=== PATIENT | female | born 1990 | race Caucasian/White ===

== ENCOUNTER 2016-05-02 13:50 | Emergency (ER) | payer BC ==
[~2016-05-02] VITALS: Ht 170.2 cm; Wt 114.3 kg
[~2016-05-02 13:50] MED LIST: AMOX500C2 PO; BCP; METH4TAB PO; MICROGESTIN PO; SULF1TAB35 PO; TRAM-21 PO
--- OUTSIDE RECORDS SUMMARY | 2016-05-02 13:56 | XMS REPORT | Continuity of Care Document ---
Author Author [facility] Organization [facility] Address Unknown Phone Unavailable Care Team Providers Care Dentist/Owner Name Role Phone [facility], [facility] PCP Insurance Providers Payer Name Policy Number Subscriber Name Relationship [facility] [id number] Gopal Lima 20 Father Advance Directives Directive Response Recorded Date/Time Advance Directives No 01/01/16 5:58pm Health Care Power of Ross Carrier Driver No 01/01/16 5:58pm Organ Donor No 01/01/16 5:58pm Resuscitation Status Full Code 01/01/16 5:58pm Chief Complaint and Reason for Visit Chief Complaint Abdominal/GI Problems Reason for Visit Polycystic ovaries Problems Active Problems Medical Problem Onset Date Status Acute costochondritis Unknown Acute Polycystic ovaries Unknown Acute Reactive cervical lymphadenopathy Unknown Acute Reactive cervical lymphadenopathy Unknown Acute Medications Current Home Medications Medication Dose Units Route Directions Days/Qty Instructions Start Date [Microgestin] 1 Tab Oral Daily 28 01/07/14 Amoxicillin 500 Mg 2 Each Oral Three Times A Day 60 01/07/14 Tramadol Hcl 50 Mg 50 Mg Oral Every 6 Hours as needed for Pain 10 10/14 Trimethoprim/Sulfamethoxazole 1 Each 1 Tab Oral Twice A Day 20 FOR INFECTION 01/09/14 Methylprednisolone 4 Mg/Dose-Pack 0 Oral As Directed 1 01/09/14 Past Home Medications Medication Directions Ordered Status [Bcp] , 10/19/11 Discontinued Social History Social History Problem Response Recorded Date/Time Alcohol Use Occasionally Uses 03/10/2015 6:53pm Recreational Drug Use No 03/10/2015 6:53pm Recent Foreign Travel No 01/09/2014 5:50pm Recent Infectious Disease Exposure No 01/09/2014 5:50pm Hospitalization with Isolation Denies 01/01/2016 5:58pm Sexually Transmitted Disease No 01/01/2016 5:58pm Smoking Status Never a Smoker 01/01/2016 5:58pm Do you dip or chew tobacco? No 03/10/2015 6:53pm Recent Hopitalizations No 01/01/2016 5:58pm Sexually Transmitted Disease No 01/01/2016 5:58pm Hospitalization with Isolation Denies 01/01/2016 5:58pm Query Response Start Date Stop Date Smoking Status Never a Smoker Hospital Discharge Instructions No hospital discharge instructions. Plan of Care Discharge Date 01/01/16 6:43pm Disposition 01 HOME, SELF-CARE Condition at Discharge Stable Instructions/Education Provided Polycystic Ovarian Syndrome (ED) Acute Abdominal Pain (ED) Forms Provided Work Release Form Prescriptions See Medication Section Referrals [facility] - Primary Care Physician Additional Instructions/Education All discharge instructions reviewed with patient and/or family. Voiced understanding. Drink plenty of fluids. You may take ibuprofen 800 mg every 8 hours as needed for pain. You may take Tylenol, 1000 mg every 8 hours as needed for pain. Follow-up with your Dr. at [facility] next week for recheck and further evaluation and further discussion related to control. Return for worse pain, fever, vomiting, weakness, breathing problems or other concerns as needed. Functional Status No functional status results. Allergies, Adverse Reactions, Alerts Allergen Type Severity Reaction Status Last Updated Morphine Allergy Unknown Active 03/10/15 Immunizations No immunization records. Vital Signs Acute Vital Signs Vital Response Date/Time Pain Numeric Pain Scale 10-Worst Possible Pain 01/01/2016 5:58pm Height (Feet) 5 feet 01/01/2016 5:58pm Height (Inches) 7 inches 01/01/2016 5:58pm Height (Calculated Centimeters) 170.458203 cm 01/01/2016 5:58pm Weight (Pounds) 240 pounds 01/01/2016 5:58pm Weight (Calculated Grams) 774617.170 gm 01/01/2016 5:58pm Weight (Calculated Kilograms) 108.897689 kilograms 01/01/2016 5:58pm Calculated BMI 37.59 01/01/2016 5:58pm Capillary Refill Capillary Refill Less Than 3 Seconds 01/01/2016 5:58pm Results Laboratory Results Test Name Result Units Flags Reference Collection Date/Time Result Date/ Time Comments White Blood Count 8.5 10^3/uL 4.3-11.0 01/01/2016 3:30pm 01/01/2016 3: 39pm Red Blood Count 4.30 10^6/uL L 4.35-5.85 01/01/2016 3:30pm 01/01/2016 3: 39pm Hemoglobin 13.2 G/DL 11.5-16.0 01/01/2016 3:30pm 01/01/2016 3:39pm Hematocrit 39 % 35-52 01/01/2016 3:30pm 01/01/2016 3:39pm Mean Corpuscular Volume 90 FL 80-99 01/01/2016 3:30pm 01/01/2016 3: 39pm Mean Corpuscular Hemoglobin 31 PG 25-34 01/01/2016 3:30pm 01/01/2016 3: 39pm Mean Corpuscular Hemoglobin Concent 34 G/DL 32-36 01/01/2016 3:30pm 3:39pm Red Cell Distribution Width 13.4 % 10.0-14.5 01/01/2016 3:30pm 2015 3:39pm Platelet Count 188 10^3/uL 130-400 01/01/2016 3:30pm 01/01/2016 3:39pm Mean Platelet Volume 11.5 FL H 7.4-10.4 01/01/2016 3:30pm 01/01/2016 3: 39pm Neutrophils (%) (Auto) 63 % 42-75 01/01/2016 3:30pm 01/01/2016 3:39pm Lymphocytes (%) (Auto) 22 % 12-44 01/01/2016 3:30pm 01/01/2016 3:39pm Monocytes (%) (Auto) 13 % H 0-12 01/01/2016 3:30pm 01/01/2016 3:39pm Eosinophils (%) (Auto) 1 % 0-10 01/01/2016 3:30pm 01/01/2016 3:39pm Basophils (%) (Auto) 0 % 0-10 01/01/2016 3:30pm 01/01/2016 3:39pm Neutrophils # (Auto) 5.4 X 10^3 1.8-7.8 01/01/2016 3:30pm 01/01/2016 3: 39pm Lymphocytes # (Auto) 1.9 X 10^3 1.0-4.0 01/01/2016 3:30pm 01/01/2016 3: 39pm Monocytes # (Auto) 1.1 X 10^3 H 0.0-1.0 01/01/2016 3:30pm 01/01/2016 3: 39pm Eosinophils # (Auto) 0.1 10^3/uL 0.0-0.3 01/01/2016 3:30pm 01/01/2016 3 :39pm Basophils # (Auto) 0.0 10^3/uL 0.0-0.1 01/01/2016 3:30pm 01/01/2016 3: 39pm Urine Color YELLOW 01/01/2016 2:37pm 01/01/2016 2:53pm Urine Clarity CLEAR 01/01/2016 2:37pm 01/01/2016 2:53pm Urine pH 7 5-9 01/01/2016 2:37pm 01/01/2016 2:53pm Urine Specific [place] 1.010 * 1.016-1.022 01/01/2016 2:37pm 2015 2:53pm Urine Protein NEGATIVE NEGATIVE 01/01/2016 2:37pm 01/01/2016 2:53pm Urine Glucose (UA) NEGATIVE NEGATIVE 01/01/2016 2:37pm 01/01/2016 2: 53pm Urine RBC (Auto) NEGATIVE NEGATIVE 01/01/2016 2:37pm 01/01/2016 2: 53pm Urine Ketones NEGATIVE NEGATIVE 01/01/2016 2:37pm 01/01/2016 2:53pm Urine Nitrite NEGATIVE NEGATIVE 01/01/2016 2:37pm 01/01/2016 2:53pm Urine Bilirubin NEGATIVE NEGATIVE 01/01/2016 2:37pm 01/01/2016 2: 53pm Urine Urobilinogen NORMAL MG/DL NORMAL 01/01/2016 2:37pm 01/01/2016 2: 53pm Urine Leukocyte Esterase NEGATIVE NEGATIVE 01/01/2016 2:37pm 2015 2:53pm Urine RBC NONE /HPF 01/01/2016 2:37pm 01/01/2016 2:53pm Urine WBC 0-2 /HPF 01/01/2016 2:37pm 01/01/2016 2:53pm Urine Bacteria TRACE /HPF 01/01/2016 2:37pm 01/01/2016 2:53pm Urine Squamous Epithelial Cells 10-25 /HPF * 01/01/2016 2:37pm 2015 2:53pm Urine Crystals NONE /LPF 01/01/2016 2:37pm 01/01/2016 2:53pm Urine Casts NONE /LPF 01/01/2016 2:37pm 01/01/2016 2:53pm Urine Mucus NEGATIVE /LPF 01/01/2016 2:37pm 01/01/2016 2:53pm Urine Culture Indicated NO 01/01/2016 2:37pm 01/01/2016 2:53pm Sodium Level 138 MMOL/L 135-145 01/01/2016 3:30pm 01/01/2016 4:06pm Potassium Level 3.8 MMOL/L 3.6-5.0 01/01/2016 3:30pm 01/01/2016 4:06pm Chloride Level 106 MMOL/L 98-107 01/01/2016 3:30pm 01/01/2016 4:06pm Carbon Dioxide Level 24 MMOL/L 21-32 01/01/2016 3:30pm 01/01/2016 4: 06pm Anion Gap 8 MMOL/L 5-14 01/01/2016 3:30pm 01/01/2016 4:06pm Blood Urea Nitrogen 7 MG/DL 7-18 01/01/2016 3:30pm 01/01/2016 4:06pm Creatinine 0.73 MG/DL 0.60-1.30 01/01/2016 3:30pm 01/01/2016 4:06pm BUN/Creatinine Ratio 10 01/01/2016 3:30pm 01/01/2016 4:06pm Estimat Glomerular Filtration Rate > 60 01/01/2016 3:30pm 2015 4:06pm GFR INTERPRETIVE DATA UNITS FOR ESTIMATED GFR (eGFR): mL/min/1.73 M2 REFERENCE RANGE FOR ESTIMATED GFR (eGFR) eGFR NORMAL eGFR >60 MODERATELY DECREASED eGFR 30-59 SEVERLY DECREASED eGFR 15-29 KIDNEY FAILURE <15 (OR DIALYSIS) Glucose Level 96 MG/DL 70-105 01/01/2016 3:30pm 01/01/2016 4:06pm Calcium Level 9.1 MG/DL 8.5-10.1 01/01/2016 3:30pm 01/01/2016 4:06pm Total Bilirubin 0.3 MG/DL 0.1-1.0 01/01/2016 3:30pm 01/01/2016 4:06pm Alkaline Phosphatase 107 U/L 40-136 01/01/2016 3:30pm 01/01/2016 4: 06pm Aspartate Amino Transf (AST/SGOT) 23 U/L 5-34 01/01/2016 3:30pm 2015 4:06pm Alanine Aminotransferase (ALT/SGPT) 27 U/L 0-55 01/01/2016 3:30pm 12/31 4:06pm Total Protein 6.6 G/DL 6.4-8.2 01/01/2016 3:30pm 01/01/2016 4:06pm Albumin 4.0 G/DL 3.2-4.5 01/01/2016 3:30pm 01/01/2016 4:06pm Lipase 6 U/L L 8-78 01/01/2016 3:30pm 01/01/2016 4:06pm Procedures No known history of procedures. Encounters Encounter Location Arrival/Admit Date Discharge/Depart Date Attending Provider Departed Emergency Room [facility] 01/01/16 1:35pm 12/31 6:43pm AGUEDA MALIN MD Recent Diagnosis
--- NOTE | 2016-05-02 14:27 | ED GU-Female ---
General Chief Complaint: -Female Stated Complaint: LOWER ABD PAIN Nursing Triage Note: PT WITH PCOS STATES SEVERE PAIN AND BLEEDING, PT IS ON HER PERIOD BUT STATES THIS IS NOT NORMAL AND FEELS LIKE WHEN SHE HAD A CYST BURST IN THE PAST, AROUND 2005. PAIN STARTED LATE LAST NIGHT AND IS GETTING WORSE THE DAY GOES. Nursing Sepsis Screen: No Definite Risk Source: patient Exam Limitations: no limitations History of Present Illness Time seen by provider: 14:27 Initial Comments 25 yo female patient presents to the ED with c/o menorrhagia starting yesterday. Patient reports moderate to severe cramping of the lower abdomen beginning today. States she has used 2-3 pads today. Reports having a miscarriage in March. LMP was in February. Does report urine has been dark. Patient reports a h/o PCOS and states today's pain feels similar to when she had a cyst rupture. Patient was seeing Dr. Lee for the miscarriage. NPO since 1199. Timing/Duration: yesterday Severity/Quality: cramping Location: suprapubic Radiation: none Activities at Onset: none Prior Genitourinary Problems: similar symptoms Sexual [place] History: less than 2 months ago, single partner Modifying Factors: Worsens With Palpation Allergies and Home Medications Allergies Coded Allergies: diphenhydramine (Verified Allergy, Mild, 05/02/16) morphine (Verified Allergy, Unknown, 03/10/15) Home Medications #28 1 TAB PO DAILY (Reported) Naproxen Sodium 550 Mg Tablet #20 550 MG PO BID PRN PRN PAIN Prescribed by: RONEN DUNN on 05/02/16 1803 Constitutional: chillsNo diaphoresis, No dizziness, No fever, malaise Respiratory: no symptoms reported Cardiovascular: no symptoms reported Gastrointestinal: see HPI abdominal painNo constipation, No diarrhea, loss of appetiteNo nausea, No vomiting Genitourinary: see HPIdenies burning, discharge (vaginal bleeding)denies dysuria, frequencydenies flank pain, denies pain : No Musculoskeletal: No back pain Skin: no symptoms reported Psychiatric/Neurological: No Symptoms Reported All Other Systemes Reviewed Negative Unless Noted: Yes (Negative excepted noted.) Past Lvusepb-Semasl-Kfirog Hx Patient Social History Type Used: Cigarettes Recent Foreign Travel: No Contact w/Someone Who Travel: No Recent Infectious Disease Expo: No Recent Hopitalizations: No Immunizations Up To Date Tetanus Booster (TDap): Unknown Seasonal Allergies Seasonal Allergies: No Surgeries HX Surgeries: Yes (Trigger thumb, foot trauma surg x 2, R ruptured ovary repair ) Surgeries: Adenoidectomy, Appendectomy, Orthopedic, Tonsillectomy Respiratory Hx Respiratory Disorders: Yes Respiratory Disorders: Asthma Cardiovascular Hx Cardiac Disorders: No Neurological Hx Neurological Disorders: Yes Neurological Disorders: Headaches /Migraines Reproductive System : No Hx : 1 Hx Para: 0 Hx Total # of Abortions (Spona: 1 Hx Reproductive Disorders: Yes Sexually Transmitted Disease: No Female Reproductive Disorders: Polycystic Ovarian Dis Genitourinary Hx Genitourinary Disorders: No Gastrointestinal Hx Gastrointestinal Disorders: No Musculoskeletal Hx Musculoskeletal Disorders: No Endocrine Hx Endocrine Disorders: No HEENT HX ENT Disorders: No Cancer Hx Cancer: No Psychosocial Hx Psychiatric Problems: Yes Behavioral Health Disorders: Anxiety, Depression Integumentary HX Skin/Integumentary Disorder: No Blood Transfusions Hx Blood Disorders: No Reviewed Nursing Assessment Reviewed/Agree w Nursing PMH: Yes Family Medical History Significant Family History: Cancer, Hypertension Physical Exam Vital Signs Vital Sign - Last 12Hours 05/02/16 05/02/16 14:13 19:18 Temp 97.9 Pulse 79 Resp 20 B/P 164/120 Pulse Ox 97 O2 Delivery Room Air Capillary Refill : Less Than 3 Seconds General Appearance: WD/WN no apparent distress obese HEENT: PERRL/EOMI pharynx normal Neck: supple normal inspection Cardiovascular: normal peripheral pulses regular rate, rhythm no edema no murmur Respiratory: lungs clear normal breath sounds no respiratory distress Gastrointestinal: normal bowel sounds soft no organomegalyNo distended, guarding (suprapubic)No rebound, tenderness (suprapubic) Pelvic: normal external exam normal adnexa no cerv. motion tender no massesNo discharge, No lesions, vaginal bleeding (small amount of dark, bloody discharge in the vagina.) Back: normal inspection no CVA tenderness Extremities: no pedal edema normal capillary refill Neurologic/Psychiatric: alert oriented x 3 depressed affect (depressed/flat affect.) Skin: normal color warm/dry Progress/Results/Core Measures Results/Orders Lab Results Laboratory Tests Test 05/02/16 14:35 05/02/16 14:50 05/02/16 18:40 Range/Units Urine Bacteria FEW H /HPF Urine Bilirubin NEGATIVE NEGATIVE Urine Casts NONE /LPF Urine Clarity BLOODY H Urine Color RED H Urine Crystals NONE /LPF Urine Culture Indicated YES Urine Glucose (UA) NEGATIVE NEGATIVE Urine Ketones NEGATIVE NEGATIVE Urine Leukocyte Esterase 2+ H NEGATIVE Urine Mucus NEGATIVE /LPF Urine Nitrite NEGATIVE NEGATIVE Urine Protein 3+ H NEGATIVE Urine RBC TNTC H /HPF Urine RBC (Auto) 5+ H NEGATIVE Urine Specific [place] 1.015 L 1.016-1.022 Urine Squamous Epithelial Cells 0-2 /HPF Urine Urobilinogen NORMAL NORMAL MG/DL Urine WBC 5-10 H /HPF Urine pH 5 5-9 Alanine Aminotransferase (ALT/SGPT) 17 0-55 U/L Albumin 4.3 3.2-4.5 G/DL Alkaline Phosphatase 112 40-136 U/L Anion Gap 8 5-14 MMOL/L Aspartate Amino Transf (AST/SGOT) 18 5-34 U/L BUN/Creatinine Ratio 15 Basophils # (Auto) 0.0 0.0-0.1 10^3/uL Basophils (%) (Auto) 0 0-10 % Blood Urea Nitrogen 10 7-18 MG/DL Calcium Level 8.9 8.5-10.1 MG/DL Carbon Dioxide Level 23 21-32 MMOL/L Chloride Level 108 H 98-107 MMOL/L Creatinine 0.66 0.60-1.30 MG/DL Eosinophils # (Auto) 0.1 0.0-0.3 10^3/uL Eosinophils (%) (Auto) 2 0-10 % Estimat Glomerular Filtration Rate > 60 Glucose Level 81 70-105 MG/DL Hematocrit 41 35-52 % Hemoglobin 14.3 11.5-16.0 G/DL Lymphocytes # (Auto) 2.9 1.0-4.0 X 10^3 Lymphocytes (%) (Auto) 38 12-44 % Mean Corpuscular Hemoglobin 31 25-34 PG Mean Corpuscular Hemoglobin Concent 35 32-36 G/DL Mean Corpuscular Volume 88 80-99 FL Mean Platelet Volume 11.5 H 7.4-10.4 FL Monocytes # (Auto) 0.5 0.0-1.0 X 10^3 Monocytes (%) (Auto) 7 0-12 % Neutrophils # (Auto) 4.0 1.8-7.8 X 10^3 Neutrophils (%) (Auto) 53 42-75 % Platelet Count 216 130-400 10^3/uL Potassium Level 3.8 3.6-5.0 MMOL/L Red Blood Count 4.67 4.35-5.85 10^6/uL Red Cell Distribution Width 12.8 10.0-14.5 % Serum Test, Qualitative NEGATIVE NEGATIVE Sodium Level 139 135-145 MMOL/L Total Bilirubin 0.3 0.1-1.0 MG/DL Total Protein 6.9 6.4-8.2 G/DL White Blood Count 7.6 4.3-11.0 10^3/uL My Orders Orders-RONEN DUNN Cbc With Automated Diff (05/02/16 14:25) Comprehensive Metabolic Panel (05/02/16 14:25) Ua Culture If Indicated (05/02/16 14:25) Saline Lock/Iv-Start (05/02/16 14:25) Urine Bedside (05/02/16 14:25) Urine Culture (05/02/16 14:35) Hcg,Qualitative Serum (05/02/16 15:05) Ketorolac Injection (Toradol Injection) (05/02/16 15:16) Ondansetron Injection (Zofran Injectio (05/02/16 15:30) Ns Iv 1000 Ml (Sodium Chloride 0.9%) (05/02/16 15:16) Us Non Ob Transvaginal [id number] (05/02/16 15:16) Ct Abdomen/Pelvis W (05/02/16 17:05) Wet Prep (05/02/16 17:05) Neisseria Gonorrhea Dna (05/02/16 17:05) Chlamydia Dna (05/02/16 17:05) Genital Culture (05/02/16 17:05) Fentanyl Injection (Sublimaze Injection (05/02/16 17:15) Iohexol Injection (Omnipaque 350 Mg/Ml 1 (05/02/16 17:15) Ns (Ivpb) (Sodium Chloride 0.9% Ivpb Bag (05/02/16 17:15) Medications Given in ED Current Medications Medications Dose Ordered Sig/Gabriela Route Start Time Stop Time Status Last Admin Dose Admin Fentanyl Citrate 50 mcg ONCE ONCE IVP 05/02/16 17:15 05/02/16 17:16 DC 05/02/16 18:38 50 MCG Ondansetron HCl 4 mg 4 mg ONCE ONCE IVP 05/02/16 15:30 05/02/16 15:31 DC 05/02/16 15:49 4 MG Sodium Chloride 100 ml ONCE ONCE IV 05/02/16 17:15 05/02/16 17:16 DC 05/02/16 17:26 100 ML Sodium Chloride 1,000 ml @ 0 mls/hr Q0M ONCE IV 05/02/16 15:16 05/02/16 15:18 DC 05/02/16 15:48 1,000 MLS/HR Vital Signs/I&O Vital Sign - Last 12Hours 05/02/16 05/02/16 14:13 19:18 Temp 97.9 Pulse 79 57 Resp 20 18 B/P 164/120 Pulse Ox 97 O2 Delivery Room Air Blood Pressure Mean: 135 Diagnostic Imaging Diagonstic Imaging: Ultrasound Plain Films/CT/US/NM/MRI: pelvis Comments DISCUSSION: Transvaginal sonographic evaluation of the pelvis was performed. The uterus is normal in echotexture and size measuring 7.4 x 3.4 x 3.1 cm. Normal endometrial thickness measuring 0.3 cm. The ovaries appear normal in echotexture and size bilaterally with normal color Doppler blood flow. The right ovary measures 2.1 x 2.1 x 2.7 cm. The left ovary measures 3.0 x 2.0 x 2.5 cm. No abnormal adnexal mass or fluid. IMPRESSION: Unremarkable pelvic ultrasound. No sonographic evidence for retained products of conception. Dictated on workstation # [id number] Reviewed: Reviewed by Me (radiology report reviewed by me) Diagonstic Imaging: CT Plain Films/CT/US/NM/MRI: abdomen, pelvis Comments FINDINGS: Visible lung bases are clear. No pericardial or pleural effusion. No free intraperitoneal air or fluid. The liver, gallbladder, and bile ducts are normal. The spleen, pancreas, and adrenals are normal. Kidneys enhance symmetrically without obstructing calculi or suspicious mass lesion. Urinary bladder is partially distended without wall thickening. Uterus and ovaries are normal in appearance for patient's age. Small (less than 2 cm) bilateral ovarian follicles. Rectosigmoid colon is decompressed without surrounding inflammatory changes to indicate active colitis. Remainder of the colon is normal. Appendectomy. Normal-caliber abdominal aorta. No abdominal or pelvic lymphadenopathy. No ventral hernia. Normal regional skeleton. IMPRESSION: 1. No acute intra-abdominal process. 2. Normal uterus and ovaries. 3. Appendectomy. Dictated on workstation # [id number] Reviewed: Reviewed by Me (radiology report reviewed by me. ) Departure Communication Progress Notes Patient seen and evaluated. Patient was noted to have a normal pelvic ultrasound, but continued to have moderate to severe lower abdominal pain. CT scan of the abd and pelvis was performed which was negative. Patient did have improvement in pain after being given the fentanyl. Laboratory findings were discussed with the patient. Plan for dsch to home. Patient to f/u on the pelvic cultures with her PCP. Impression Impression: Primary Impression: Menorrhagia Qualified Code: N92.1 - Excessive and frequent menstruation with irregular cycle Additional Impressions: Pelvic pain History of polycystic ovarian syndrome Disposition: HOME, SELF-CARE Condition: Improved Departure-Patient Inst. Decision time for Depature: 18:06 Referrals: NO,LOCAL PHYSICIAN (PCP/Family) Primary Care Physician Patient Instructions: IRREGULAR VAGINAL BLEEDING Add. Discharge Instructions: All discharge instructions reviewed with patient and/or family. Voiced understanding. Medications as instructed. Tylenol Extra Strength over-the- counter as directed for pain. Follow-up with Dr. Lee as an outpatient for recheck, call for appointment time. Return to the emergency department for worsened pain, fever, vaginal bleeding with greater than 2 pads per hour for greater than 2 hours, or any other concerns. Scripts Naproxen Sodium (Anaprox Ds)550 Mg Xupubn451 Mg PO BID PRN PAIN #20 TAB Ref 0 Prov:RONEN DUNN 05/02/16 Work/School Note: [employer] RONEN DUNN May 02, 2016 14:27
[2016-05-02 14:47] LABS: BILIRUBIN,URINE NEGATIVE (NEGATIVE); KETONES,URINE NEGATIVE (NEGATIVE); LEUKOCYTE ESTERASE ,URINE 2+ (NEGATIVE); NITRITE,URINE NEGATIVE (NEGATIVE); PH,URINE 5 (5-9); PROTEIN,URINE 3+ (NEGATIVE); UROBILINOGEN,URINE NORMAL (NORMAL)
[2016-05-02 15:00] LABS: SQUAMOUS EPITHELIAL CELL,UR 0-2 /HPF
[2016-05-02 15:04] LABS: BASOPHILS % (AUTO) 0 % (0-10); EOSINOPHILS # (AUTO) 0.1 10^3/uL (0.0-0.3); EOSINOPHILS % (AUTO) 2 % (0-10); LYMPHOCYTES # (AUTO) 2.9 X 10^3 (1.0-4.0); LYMPHOCYTES % (AUTO) 38 % (12-44); MEAN CORPUSCULAR HEMOGLOBIN 31 PG (25-34); MEAN CORPUSCULAR HGB CONC 35 G/DL (32-36); MEAN CORPUSCULAR VOLUME 88 FL (80-99); MEAN PLATELET VOLUME 11.5 FL (7.4-10.4); MONOCYTES # (AUTO) 0.5 X 10^3 (0.0-1.0); MONOCYTES % (AUTO) 7 % (0-12); NEUTROPHILS % (AUTO) 53 % (42-75); PLATELET COUNT 216 10^3/uL (130-400); RED BLOOD COUNT 4.67 10^6/uL (4.35-5.85); RED CELL DISTRIBUTION WIDTH 12.8 % (10.0-14.5); WHITE BLOOD COUNT 7.6 10^3/uL (4.3-11.0)
[2016-05-02] MEDS ORDERED: NS IV 1000 ML 1,000 ML IV ONE (15:16)
[2016-05-02] MEDS ORDERED: KETOROLAC 30 MG/ML VIAL IVP STA (15:16)
[2016-05-02 15:24] LABS: ALANINE AMINOTRANSFERASE 17 U/L (0-55); ALBUMIN 4.3 G/DL (3.2-4.5); ANION GAP 8 MMOL/L (5-14); ASPARTATE AMINO TRANSFERASE 18 U/L (5-34); BILIRUBIN,TOTAL 0.3 MG/DL (0.1-1.0); BLOOD UREA NITROGEN 10 MG/DL (7-18); BUN/CREATININE RATIO 15; CALCIUM 8.9 MG/DL (8.5-10.1); CARBON DIOXIDE 23 MMOL/L (21-32); CHLORIDE 108 MMOL/L (98-107); CREATININE SERUM 0.66 MG/DL (0.60-1.30); GFR ESTIMATED > 60; GLUCOSE 81 MG/DL (70-105); POTASSIUM 3.8 MMOL/L (3.6-5.0); SODIUM 139 MMOL/L (135-145); TOTAL PROTEIN 6.9 G/DL (6.4-8.2)
[2016-05-02] MEDS ORDERED: ONDANSETRON 4 MG/2 ML (SDV) Z0FRAN IVP ONE (15:30)
--- NOTE | 2016-05-02 16:04 | Diagnostic Imaging Report ---
INDICATION: Dysfunctional uterine bleeding, history of recent miscarriage in March 2016. COMPARISON: 01/01/2016. DISCUSSION: Transvaginal sonographic evaluation of the pelvis was performed. The uterus is normal in echotexture and size measuring 7.4 x 3.4 x 3.1 cm. Normal endometrial thickness measuring 0.3 cm. The ovaries appear normal in echotexture and size bilaterally with normal color Doppler blood flow. The right ovary measures 2.1 x 2.1 x 2.7 cm. The left ovary measures 3.0 x 2.0 x 2.5 cm. No abnormal adnexal mass or fluid. IMPRESSION: Unremarkable pelvic ultrasound. No sonographic evidence for retained products of conception. Dictated by: Dictated on workstation # [id number]
[2016-05-02] MEDS ORDERED: fentaNYL INJECTION 100 MCG/2 ML AMP IVP ONE (17:15)
[2016-05-02] MEDS ORDERED: NS 100 ML (IVPB) BAG IV ONE (17:15)
[2016-05-02] MEDS ORDERED: IOHEXOL 350 MG/ML 150 ML (OMNIPAQUE 350) VIAL IV ONE (17:15)
--- NOTE | 2016-05-02 17:47 | Diagnostic Imaging Report ---
PROCEDURE: CT abdomen and pelvis with contrast. TECHNIQUE: Multiple contiguous axial images were obtained through the abdomen and pelvis after administration of intravenous contrast. INDICATION: Lower abdominal and pelvic pain. Diarrhea. COMPARISON: 01/01/2016. FINDINGS: Visible lung bases are clear. No pericardial or pleural effusion. No free intraperitoneal air or fluid. The liver, gallbladder, and bile ducts are normal. The spleen, pancreas, and adrenals are normal. Kidneys enhance symmetrically without obstructing calculi or suspicious mass lesion. Urinary bladder is partially distended without wall thickening. Uterus and ovaries are normal in appearance for patient's age. Small (less than 2 cm) bilateral ovarian follicles. Rectosigmoid colon is decompressed without surrounding inflammatory changes to indicate active colitis. Remainder of the colon is normal. Appendectomy. Normal-caliber abdominal aorta. No abdominal or pelvic lymphadenopathy. No ventral hernia. Normal regional skeleton. IMPRESSION: 1. No acute intra-abdominal process. 2. Normal uterus and ovaries. 3. Appendectomy. Dictated by: Dictated on workstation # [id number]
[2016-05-02] MEDS ORDERED: NAPR550T PO (18:03)
[2016-05-02 19:18] VITALS: BP 136/79
== END 2016-05-02 19:17 | disposition home or self-care (01) ==
LOC: EDUNIT# 13:50 → ER 13:52
DX: N92.0 Excessive and frequent menstruation with regular cycle (principal); R10.2 Pelvic and perineal pain; E28.2 Polycystic ovarian syndrome
CPT/HCPCS: 36415; 74177; 76830; 80053; 81000; 84703; 85025; 87070; 87088; 87210; 87491; 87591; 96361; 96374; 96375

== ENCOUNTER 2016-09-28 22:53 | Emergency (ER) | payer BC ==
[~2016-09-28] VITALS: Ht 172.7 cm; Wt 81.6 kg
[~2016-09-28 22:53] MED LIST changes: +NAPR550T PO
[2016-09-29] MEDS ORDERED: AMOXICILLIN 500 MG (POLYMOX) CAP PO ONE ×2 (00:12)
[2016-09-29 00:19] VITALS: BP 172/96
--- NOTE | 2016-09-29 06:39 | ED General ---
General Chief Complaint: Ear Problems Stated Complaint: RT SIDE EAR/HEAD PAIN Nursing Triage Note: pt c/o bilat ear pain, worse on the right, x 1 month. pain worsening tonight with headache. Nursing Sepsis Screen: No Definite Risk Allergies and Home Medications Allergies Coded Allergies: diphenhydramine (Verified Allergy, Mild, 05/02/16) morphine (Verified Allergy, Unknown, 03/10/15) Home Medications [Microgestin] , 1 TAB PO DAILY, #28 (Reported) Past Dkwkrpk-Rgqoww-Fzwcsr Hx Patient Social History Alcohol Use: Rarely Uses Recreational Drug Use: No Smoking Status: Never a Smoker Type Used: Cigarettes Recent Foreign Travel: No Contact w/Someone Who Travel: No Recent Infectious Disease Expo: No Recent Hopitalizations: No Immunizations Up To Date Tetanus Booster (TDap): Unknown Seasonal Allergies Seasonal Allergies: No Surgeries HX Surgeries: Yes (Trigger thumb, foot trauma surg x 2, R ruptured ovary repair ) Surgeries: Adenoidectomy, Appendectomy, Orthopedic, Tonsillectomy Respiratory Hx Respiratory Disorders: Yes Respiratory Disorders: Asthma Cardiovascular Hx Cardiac Disorders: No Neurological Hx Neurological Disorders: Yes Neurological Disorders: Headaches /Migraines Reproductive System Hx Reproductive Disorders: Yes Sexually Transmitted Disease: No Female Reproductive Disorders: Polycystic Ovarian Dis Genitourinary Hx Genitourinary Disorders: No Gastrointestinal Hx Gastrointestinal Disorders: No Musculoskeletal Hx Musculoskeletal Disorders: No Endocrine Hx Endocrine Disorders: No HEENT HX ENT Disorders: No Cancer Hx Cancer: No Psychosocial Hx Psychiatric Problems: Yes Behavioral Health Disorders: Anxiety, Depression Integumentary HX Skin/Integumentary Disorder: No Blood Transfusions Hx Blood Disorders: No Family Medical History Significant Family History: Cancer, Hypertension Physical Exam Vital Signs Vital Sign - Last 12Hours 09/28/16 09/29/16 23:10 00:19 Temp 97.7 Pulse 72 Resp 16 B/P (MAP) 184/101 Pulse Ox 98 Capillary Refill : Less Than 3 Seconds Progress/Results/Core Measures Results/Orders My Orders Orders - ENIO SORTO MD Amoxicillin Capsule (Polymox Capsule) (09/29/16 00:00) Medications Given in ED Current Medications Medications Dose Ordered Sig/Gabriela Route Start Time Stop Time Status Last Admin Dose Admin Amoxicillin 1,000 mg ONCE ONCE PO 09/29/16 00:00 09/29/16 01:39 DC 09/28/16 00:15 1,000 MG Vital Signs/I&O Vital Sign - Last 12Hours 09/28/16 09/29/16 23:10 00:19 Temp 97.7 Pulse 72 76 Resp 16 15 B/P (MAP) 184/101 Pulse Ox 98 Blood Pressure Mean: 128 Departure Impression Impression: Primary Impression: Maxillary sinusitis, acute Qualified Codes: J01.00 - Acute maxillary sinusitis, unspecified Additional Impressions: Neck pain Otalgia Qualified Codes: H92.01 - Otalgia, right ear Headache Qualified Codes: R51 - Headache Disposition: 01 HOME, SELF-CARE Condition: Improved Departure-Patient Inst. Referrals: NO,LOCAL PHYSICIAN (PCP) Primary Care Physician ENIO SORTO MD Sep 29, 2016 06:39
--- OUTSIDE RECORDS SUMMARY | 2016-09-29 09:41 | XMS REPORT | Continuity of Care Document ---
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 10/19/2011 Ot 959.09 INJURY OF FACE AND NECK 10/19/2011 Ot E000.8 OTHER EXTERNAL CAUSE STATUS 10/19/2011 Ot E849.0 ACCIDENT IN HOME 10/19/2011 Ot E914 FB ENTERING EYE 01/07/2014 NOREEN BRAXTON, ENIO Hager Ot 388.70 OTALGIA NOS 01/07/2014 NOREEN BRAXTON, ENIO Hager Ot 785.6 ENLARGEMENT LYMPH NODES 01/09/2014 PILLO DAVILA DO Ot 782.2 LOCAL SUPRFICIAL SWELLNG 03/10/2015 YULY MCKNIGHT DO Ot M94.0 CHONDROCOSTAL JUNCTION SYNDROME [TIETZE] 05/25/2015 Ot 787.02 05/25/2015 Ot 789.00 06/08/2015 DOT TIDWELL MD Ot G43.909 06/08/2015 DOT TIDWELL MD Ot G43.909 06/25/2015 DOT TIDWELL MD Ot G43.909 01/01/2016 AGUEDA MALIN MD Ot E28.2 POLYCYSTIC OVARIAN SYNDROME 01/01/2016 AGUEDA MALIN MD Ot R10.32 LEFT LOWER QUADRANT PAIN 01/04/2016 AGUEDA MALIN MD Ot E28.2 POLYCYSTIC OVARIAN SYNDROME 01/04/2016 AGUEDA MALIN MD Ot R10.32 LEFT LOWER QUADRANT PAIN 03/28/2016 AGUEDA MALIN MD Ot O20.0 THREATENED 03/28/2016 Ot 787.02 NAUSEA ALONE 03/28/2016 Ot 789.00 ABDOMINAL PAIN, UNSPECIFIED SITE 03/28/2016 YAW BRAXTON, DOT Braden Ot G43.909 MIGRAINE, UNSP, NOT INTRACTABLE, WITHOUT 03/29/2016 KIMO BRAXTON, AGUEDA Noguera Ot O20.0 THREATENED 05/02/2016 RONEN CALLAWAY L Ot E28.2 POLYCYSTIC OVARIAN SYNDROME 05/02/2016 RONEN CALLAWAY L Ot N92.0 EXCESSIVE AND FREQUENT MENSTRUATION WITH 05/02/2016 RONEN CALLAWAY L Ot R10.2 PELVIC AND PERINEAL PAIN 05/02/2016 RONEN CALLAWAY L Ot R10.30 LOWER ABDOMINAL PAIN, UNSPECIFIED 05/03/2016 RONEN CALLAWAY L Ot E28.2 POLYCYSTIC OVARIAN SYNDROME 05/03/2016 RONEN CALLAWAY L Ot N92.0 EXCESSIVE AND FREQUENT MENSTRUATION WITH 05/03/2016 RONEN CALLAWAY L Ot R10.2 PELVIC AND PERINEAL PAIN 05/03/2016 LEA CALLAWAYEN L Ot R10.30 LOWER ABDOMINAL PAIN, UNSPECIFIED 05/04/2016 LEA CALLAWAYEN L Ot E28.2 POLYCYSTIC OVARIAN SYNDROME 05/04/2016 RONEN CALLAWAY L Ot N92.0 EXCESSIVE AND FREQUENT MENSTRUATION WITH 05/04/2016 RONEN CALLAWAY L Ot R10.2 PELVIC AND PERINEAL PAIN 05/04/2016 RONEN CALLAWAY L Ot R10.30 LOWER ABDOMINAL PAIN, UNSPECIFIED 05/10/2016 LEA CALLAWAYEN L Ot E28.2 POLYCYSTIC OVARIAN SYNDROME 05/10/2016 RONEN CALLAWAY L Ot N92.0 EXCESSIVE AND FREQUENT MENSTRUATION WITH 05/10/2016 RONEN CALLAWAY L Ot R10.2 PELVIC AND PERINEAL PAIN 05/10/2016 RONEN CALLAWAY L Ot R10.30 LOWER ABDOMINAL PAIN, UNSPECIFIED 05/11/2016 LEA CALLAWAYEN L Ot E28.2 POLYCYSTIC OVARIAN SYNDROME 05/11/2016 LEA CALLAWAYEN L Ot N92.0 EXCESSIVE AND FREQUENT MENSTRUATION WITH 05/11/2016 LEA CALLAWAYEN L Ot R10.2 PELVIC AND PERINEAL PAIN 05/11/2016 SHAUN MORE, RONEN Melgar Ot R10.30 LOWER ABDOMINAL PAIN, UNSPECIFIED Procedures Results Test Result Range Complete urinalysis with reflex to culture - 01/01/16 14:37 Urine color determination YELLOW NRG Urine clarity determination CLEAR NRG Urine pH measurement by test strip 7 5- 9 Specific gravity of urine by test strip 1.010 1.016-1.022 Urine protein assay by test strip, semi-quantitative NEGATIVE NEGATIVE Urine glucose detection by automated test strip NEGATIVE NEGATIVE Erythrocytes detection in urine sediment by light microscopy NEGATIVE NEGATIVE Urine ketones detection by automated test strip NEGATIVE NEGATIVE Urine nitrite detection by test strip NEGATIVE NEGATIVE Urine total bilirubin detection by test strip NEGATIVE NEGATIVE Urine urobilinogen measurement by automated test strip (mass/volume) NORMAL NORMAL Urine leukocyte esterase detection by dipstick NEGATIVE NEGATIVE Automated urine sediment erythrocyte count by microscopy (number/high power field) NONE NRG Automated urine sediment leukocyte count by microscopy (number/high power field ) [HPF] NRG Bacteria detection in urine sediment by light microscopy TRACE NRG Squamous epithelial cells detection in urine sediment by light microscopy 10-25 NRG Crystals detection in urine sediment by light microscopy NONE NRG Casts detection in urine sediment by light microscopy NONE NRG Mucus detection in urine sediment by light microscopy NEGATIVE NRG Complete urinalysis with reflex to culture NO NRG Complete blood count (CBC) with automated white blood cell (WBC) differential - 01/01/16 15:30 Blood leukocytes automated count (number/volume) 8.5 10*3/ uL 4.3-11.0 Blood erythrocytes automated count (number/volume) 4.30 10*6 /uL 4.35-5.85 Venous blood hemoglobin measurement (mass/volume) 13.2 g/dL 11.5-16.0 Blood hematocrit (volume fraction) 39 % 35-52 Automated erythrocyte mean corpuscular volume 90 [foz_us] 80-99 Automated erythrocyte mean corpuscular hemoglobin (mass per erythrocyte) 31 pg 25-34 Automated erythrocyte mean corpuscular hemoglobin concentration measurement ( mass/volume) 34 g/dL 32-36 Automated erythrocyte distribution width ratio 13.4 % 10.0-14.5 Automated blood platelet count (count/volume) 188 10*3/uL 130-400 Automated blood platelet mean volume measurement 11.5 [foz_ us] 7.4-10.4 Automated blood neutrophils/100 leukocytes 63 % 42-75 Automated blood lymphocytes/100 leukocytes 22 % 12-44 Blood monocytes/100 leukocytes 13 % 0-12 Automated blood eosinophils/100 leukocytes 1 % 0-10 Automated blood basophils/100 leukocytes 0 % 0-10 Blood neutrophils automated count (number/volume) 5.4 10*3 1.8-7.8 Blood lymphocytes automated count (number/volume) 1.9 10*3 1.0-4.0 Blood monocytes automated count (number/volume) 1.1 10*3 0.0-1.0 Automated eosinophil count 0.1 10*3/uL 0.0-0.3 Automated blood basophil count (count/volume) 0.0 10*3/uL 0.0-0.1 Serum or plasma choriogonadotropin ( test) detection - 01/01/16 15:30 Serum or plasma choriogonadotropin ( test) detection NEGATIVE NEGATIVE Comprehensive metabolic panel - 01/01/16 15:30 Serum or plasma sodium measurement (moles/volume) 138 mmol/ L 135-145 Serum or plasma potassium measurement (moles/volume) 3.8 mmol/L 3.6-5.0 Serum or plasma chloride measurement (moles/volume) 106 mmol /L 98-107 Carbon dioxide 24 mmol/L 21-32 Serum or plasma anion gap determination (moles/volume) 8 mmol/L 5-14 Serum or plasma urea nitrogen measurement (mass/volume) 7 mg /dL 7-18 Serum or plasma creatinine measurement (mass/volume) 0.73 mg /dL 0.60-1.30 Serum or plasma urea nitrogen/creatinine mass ratio 10 NRG Serum or plasma creatinine measurement with calculation of estimated glomerular filtration rate > NRG Serum or plasma glucose measurement (mass/volume) 96 mg/dL 70-105 Serum or plasma calcium measurement (mass/volume) 9.1 mg/dL 8.5-10.1 Serum or plasma total bilirubin measurement (mass/volume) 0.3 mg/dL 0.1-1.0 Serum or plasma alkaline phosphatase measurement (enzymatic activity/volume) 107 U/L 40-136 Serum or plasma aspartate aminotransferase measurement (enzymatic activity/ volume) 23 U/L 5-34 Serum or plasma alanine aminotransferase measurement (enzymatic activity/volume ) 27 U/L 0-55 Serum or plasma protein measurement (mass/volume) 6.6 g/dL 6.4-8.2 Serum or plasma albumin measurement (mass/volume) 4.0 g/dL 3.2-4.5 Lipase - 01/01/16 15:30 Lipase 6 U/L 8-78 Complete blood count (CBC) with automated white blood cell (WBC) differential - 03/27/16 23:00 Blood leukocytes automated count (number/volume) 10.1 10*3/ uL 4.3-11.0 Blood erythrocytes automated count (number/volume) 4.42 10*6 /uL 4.35-5.85 Venous blood hemoglobin measurement (mass/volume) 13.5 g/dL 11.5-16.0 Blood hematocrit (volume fraction) 40 % 35-52 Automated erythrocyte mean corpuscular volume 90 [foz_us] 80-99 Automated erythrocyte mean corpuscular hemoglobin (mass per erythrocyte) 31 pg 25-34 Automated erythrocyte mean corpuscular hemoglobin concentration measurement ( mass/volume) 34 g/dL 32-36 Automated erythrocyte distribution width ratio 12.8 % 10.0-14.5 Automated blood platelet count (count/volume) 253 10*3/uL 130-400 Automated blood platelet mean volume measurement 11.0 [foz_ us] 7.4-10.4 Automated blood neutrophils/100 leukocytes 46 % 42-75 Automated blood lymphocytes/100 leukocytes 43 % 12-44 Blood monocytes/100 leukocytes 9 % 0-12 Automated blood eosinophils/100 leukocytes 2 % 0-10 Automated blood basophils/100 leukocytes 0 % 0-10 Blood neutrophils automated count (number/volume) 4.6 10*3 1.8-7.8 Blood lymphocytes automated count (number/volume) 4.3 10*3 1.0-4.0 Blood monocytes automated count (number/volume) 0.9 10*3 0.0-1.0 Automated eosinophil count 0.2 10*3/uL 0.0-0.3 Automated blood basophil count (count/volume) 0.0 10*3/uL 0.0-0.1 Complete urinalysis with reflex to culture - 03/27/16 23:00 Urine color determination RED NRG Urine clarity determination BLOODY NRG Urine pH measurement by test strip 6.5 5 -9 Specific gravity of urine by test strip 1.015 1.016-1.022 Urine protein assay by test strip, semi-quantitative 3+ NEGATIVE Urine glucose detection by automated test strip NEGATIVE NEGATIVE Erythrocytes detection in urine sediment by light microscopy 5+ NEGATIVE Urine ketones detection by automated test strip NEGATIVE NEGATIVE Urine nitrite detection by test strip NEGATIVE NEGATIVE Urine total bilirubin detection by test strip NEGATIVE NEGATIVE Urine urobilinogen measurement by automated test strip (mass/volume) NORMAL NORMAL Urine leukocyte esterase detection by dipstick 3+ NEGATIVE Automated urine sediment erythrocyte count by microscopy (number/high power field) [facility] Automated urine sediment leukocyte count by microscopy (number/high power field ) [HPF] NRG Bacteria detection in urine sediment by light microscopy TRACE NRG Crystals detection in urine sediment by light microscopy NONE NRG Casts detection in urine sediment by light microscopy NONE NRG Mucus detection in urine sediment by light microscopy NEGATIVE NRG Complete urinalysis with reflex to culture YES NRG ABO+Rh group - 03/27/16 23:00 ABO+Rh group OP NRG Transfusion band number [id number] NRG Serum or plasma choriogonadotropin measurement (units/volume) - 03/27/16 23:00 Serum or plasma choriogonadotropin measurement (units/volume) 5 m[iU]/mL <5 Bacterial urine culture - 03/27/16 23:00 URINE CULTURE RESULTS 10,000/ML - 100,000/ML NRG Complete urinalysis with reflex to culture - 05/02/16 14:35 Urine color determination RED NRG Urine clarity determination BLOODY NRG Urine pH measurement by test strip 5 5- 9 Specific gravity of urine by test strip 1.015 1.016-1.022 Urine protein assay by test strip, semi-quantitative 3+ NEGATIVE Urine glucose detection by automated test strip NEGATIVE NEGATIVE Erythrocytes detection in urine sediment by light microscopy 5+ NEGATIVE Urine ketones detection by automated test strip NEGATIVE NEGATIVE Urine nitrite detection by test strip NEGATIVE NEGATIVE Urine total bilirubin detection by test strip NEGATIVE NEGATIVE Urine urobilinogen measurement by automated test strip (mass/volume) NORMAL NORMAL Urine leukocyte esterase detection by dipstick 2+ NEGATIVE Automated urine sediment erythrocyte count by microscopy (number/high power field) [facility] Automated urine sediment leukocyte count by microscopy (number/high power field ) [HPF] NRG Bacteria detection in urine sediment by light microscopy FEW NRG Squamous epithelial cells detection in urine sediment by light microscopy 0-2 NRG Crystals detection in urine sediment by light microscopy NONE NRG Casts detection in urine sediment by light microscopy NONE NRG Mucus detection in urine sediment by light microscopy NEGATIVE NRG Complete urinalysis with reflex to culture YES [facility] Bacterial urine culture - 05/02/16 14:35 URINE CULTURE RESULTS 10,000/ML - 100,000/ML [facility] Complete blood count (CBC) with automated white blood cell (WBC) differential - 05/02/16 14:50 Blood leukocytes automated count (number/volume) 7.6 10*3/ uL 4.3-11.0 Blood erythrocytes automated count (number/volume) 4.67 10*6 /uL 4.35-5.85 Venous blood hemoglobin measurement (mass/volume) 14.3 g/dL 11.5-16.0 Blood hematocrit (volume fraction) 41 % 35-52 Automated erythrocyte mean corpuscular volume 88 [foz_us] 80-99 Automated erythrocyte mean corpuscular hemoglobin (mass per erythrocyte) 31 pg 25-34 Automated erythrocyte mean corpuscular hemoglobin concentration measurement ( mass/volume) 35 g/dL 32-36 Automated erythrocyte distribution width ratio 12.8 % 10.0-14.5 Automated blood platelet count (count/volume) 216 10*3/uL 130-400 Automated blood platelet mean volume measurement 11.5 [foz_ us] 7.4-10.4 Automated blood neutrophils/100 leukocytes 53 % 42-75 Automated blood lymphocytes/100 leukocytes 38 % 12-44 Blood monocytes/100 leukocytes 7 % 0-12 Automated blood eosinophils/100 leukocytes 2 % 0-10 Automated blood basophils/100 leukocytes 0 % 0-10 Blood neutrophils automated count (number/volume) 4.0 10*3 1.8-7.8 Blood lymphocytes automated count (number/volume) 2.9 10*3 1.0-4.0 Blood monocytes automated count (number/volume) 0.5 10*3 0.0-1.0 Automated eosinophil count 0.1 10*3/uL 0.0-0.3 Automated blood basophil count (count/volume) 0.0 10*3/uL 0.0-0.1 Comprehensive metabolic panel - 05/02/16 14:50 Serum or plasma sodium measurement (moles/volume) 139 mmol/ L 135-145 Serum or plasma potassium measurement (moles/volume) 3.8 mmol/L 3.6-5.0 Serum or plasma chloride measurement (moles/volume) 108 mmol /L 98-107 Carbon dioxide 23 mmol/L 21-32 Serum or plasma anion gap determination (moles/volume) 8 mmol/L 5-14 Serum or plasma urea nitrogen measurement (mass/volume) 10 mg/dL 7-18 Serum or plasma creatinine measurement (mass/volume) 0.66 mg /dL 0.60-1.30 Serum or plasma urea nitrogen/creatinine mass ratio 15 NRG Serum or plasma creatinine measurement with calculation of estimated glomerular filtration rate > NRG Serum or plasma glucose measurement (mass/volume) 81 mg/dL 70-105 Serum or plasma calcium measurement (mass/volume) 8.9 mg/dL 8.5-10.1 Serum or plasma total bilirubin measurement (mass/volume) 0.3 mg/dL 0.1-1.0 Serum or plasma alkaline phosphatase measurement (enzymatic activity/volume) 112 U/L 40-136 Serum or plasma aspartate aminotransferase measurement (enzymatic activity/ volume) 18 U/L 5-34 Serum or plasma alanine aminotransferase measurement (enzymatic activity/volume ) 17 U/L 0-55 Serum or plasma protein measurement (mass/volume) 6.9 g/dL 6.4-8.2 Serum or plasma albumin measurement (mass/volume) 4.3 g/dL 3.2-4.5 Serum or plasma choriogonadotropin ( test) detection - 05/02/16 14:50 Serum or plasma choriogonadotropin ( test) detection NEGATIVE NEGATIVE Bacteria identification in genital specimen by aerobe culture - 05/02/16 18:40 FREE TEXT EXTERNAL PLUS MODERATE NORMAL HANANE NRG QUANTITY OF GROWTH Scant Growth NRG Bacteria identification in genital specimen by aerobe culture [id number] NRG Microscopic examination by wet preparation - 05/02/16 18:40 WET PREP RESULTS ON GRAM STAIN NRG Neisseria gonorrhoeae DNA detection by probe and signal amplification method - 05/02/16 18:40 Gonorrhea amp DNA-urine Negative Negative Chlamydia trachomatis DNA detection by probe and signal amplification method - 05/02/16 18:40 Chlamydia trachomatis DNA detection by probe and target amplification method Negative Negative Encounters ACCT No. Visit Date/Time Discharge Status Pt. Type Provider Facility Loc./Unit Complaint [id number] 05/02/2016 13:52:00 2016 19:17:00 DIS Emergency RONEN CALLAWAY [facility] ER LOWER ABD PAIN [id number] 03/27/2016 22:01:00 2015 00:21:00 DIS Emergency KIMO BRAXTON, AGUEDA Noguera [facility] ER HEAVY BLEEDING;POSITIVE TEST RECENTLY [id number] 01/01/2016 13:35:00 2015 18:43:00 DIS Emergency AGUEDA MALIN MD [facility] ER OVARY PAIN [id number] 03/10/2015 18:31:00 2014 20:40:00 DIS Emergency YULY MCKNIGHT DO [facility] ER BILAT ARM NUMBNESS,DIFFICULTY BREATING, BACK PAIN [id number] 01/09/2014 17:39:00 2013 19:30:00 DIS Emergency PILLO DAVILA DO [facility] ER POSS ABSCESS [id number] 01/07/2014 01:51:00 2013 02:29:00 DIS Emergency NOREEN BRAXTON, ENIO Hager [facility] ER LEFT EAR PAIN [id number] 11/19/2012 18:55:00 2012 23:59:59 CLS Outpatient [id number] 10/08/2015 16:33:00 ACT Outpatient JOHANNE BECKMAN DO [facility] QUICK [id number] 05/25/2015 11:18:00 ACT Outpatient DOT TIDWELL MD [facility] RAD MIGRAINE [id number] 10/19/2011 00:57:00 Document Registration [id number] 12/09/2010 10:03:00 Document Registration
--- OUTSIDE RECORDS SUMMARY | 2016-09-29 09:41 | XMS REPORT ---
Author ERAN Tang [facility] eClinicalWorks Address Unknown Phone Unavailable Care Team Providers Care Business Applications Specialist Name Role Phone ERAN VASQUEZ CP Unavailable Allergies, Adverse Reactions, Alerts Substance Reaction Event Type Morphine Sulfate Info Not Available Drug Allergy Benadryl Info Not Available Drug Allergy Problems Problem Type Condition Code Onset Dates Condition Status Assessment Acute infective pharyngitis J02.9 Active Medications Medication Code System Code Instructions Start Date End Date Status Dosage Amoxicillin [facility] [address]-16 500 MG Orally 3 times a day Jan 04, 2016 Jan 11, 2016 1 capsule Procedures Procedure Coding System Code Date Office Visit, Est Pt., Level 2 CPT-4 25943 Jan 04, 2016 Vital Signs Date/Time: Jan 04, 2016 Cardiac Monitoring Heart Rate 88 bpm Weight 236 lbs Height 67 in BMI 36.96 Index Blood Pressure Diastolic 88 mmHg Blood Pressure Systolic 114 mmHg Results No Known Results Summary Purpose eClinicalWorks Submission
== END 2016-09-29 00:19 | disposition home or self-care (01) ==
LOC: EDUNIT# 22:53 → ER 22:53
DX: J01.00 Acute maxillary sinusitis, unspecified (principal); M54.2 Cervicalgia; H92.01 Otalgia, right ear; F41.8 Other specified anxiety disorders
CPT/HCPCS: 99282

== ENCOUNTER 2019-04-26 22:19 | Emergency (ER) | payer BC, OTHER ==
[~2019-04-26] VITALS: Ht 170 cm; Wt 106.0 kg
[~2019-04-26 22:19] MED LIST changes: +ALPR0.5T7; +CYCL10TA9 PO; +NAPR-1070 PO; +NAPR-1071 PO; -NAPR550T PO; +PRD20T PO
[2019-04-26 23:20] LABS: BILIRUBIN,URINE NEGATIVE (NEGATIVE); CLARITY,URINE SL CLOUDY; COLOR,URINE YELLOW; GLUCOSE, URINE (UA) NEGATIVE (NEGATIVE); KETONES,URINE NEGATIVE (NEGATIVE); LEUKOCYTE ESTERASE ,URINE NEGATIVE (NEGATIVE); NITRITE,URINE NEGATIVE (NEGATIVE); PROTEIN,URINE NEGATIVE (NEGATIVE)
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
[2019-04-26 23:39] LABS: RBC,URINE 0-2 /HPF
[2019-04-26 23:40] LABS: BACTERIA,URINE MODERATE /HPF
[2019-04-26] MEDS ORDERED: LACTATED RINGERS 1,000 ML IV ONE (23:46)
[2019-04-26] MEDS ORDERED: KETOROLAC 30 MG/ML VIAL IVP STA (23:46)
[2019-04-27] MEDS ORDERED: cefTRIAXone FOR IV USE 1,000 MG in WATER (STERILE) FOR INJECTION 10 ML IV ONE ×2
[2019-04-27 00:24] LABS: BASOPHILS % (AUTO) 0 % (0-10); EOSINOPHILS # (AUTO) 0.1 10^3/uL (0.0-0.3); EOSINOPHILS % (AUTO) 1 % (0-10); HEMATOCRIT 43 % (35-52); HEMOGLOBIN 14.5 G/DL (11.5-16.0); LYMPHOCYTES # (AUTO) 3.6 X 10^3 (1.0-4.0); LYMPHOCYTES % (AUTO) 36 % (12-44); MEAN CORPUSCULAR HEMOGLOBIN 31 PG (25-34); MEAN CORPUSCULAR HGB CONC 34 G/DL (32-36); MEAN CORPUSCULAR VOLUME 90 FL (80-99); MEAN PLATELET VOLUME 11.7 FL (7.4-10.4); MONOCYTES # (AUTO) 0.8 X 10^3 (0.0-1.0); MONOCYTES % (AUTO) 8 % (0-12); NEUTROPHILS # (AUTO) 5.4 X 10^3 (1.8-7.8); NEUTROPHILS % (AUTO) 55 % (42-75); PLATELET COUNT 241 10^3/uL (130-400); RED CELL DISTRIBUTION WIDTH 13.4 % (10.0-14.5); WHITE BLOOD COUNT 9.9 10^3/uL (4.3-11.0)
[2019-04-27 00:44] LABS: ALANINE AMINOTRANSFERASE 16 U/L (0-55); ALBUMIN 4.6 GM/DL (3.2-4.5); ALKALINE PHOSPHATASE 107 U/L (40-136); AMYLASE 37 U/L (25-125); BILIRUBIN,TOTAL 0.4 MG/DL (0.1-1.0); BUN/CREATININE RATIO 10; CALCIUM 9.4 MG/DL (8.5-10.1); CARBON DIOXIDE 24 MMOL/L (21-32); CHLORIDE 105 MMOL/L (98-107); CREATININE SERUM 0.73 MG/DL (0.60-1.30); GFR ESTIMATED > 60; GLUCOSE 88 MG/DL (70-105); LIPASE < 4 U/L (8-78); POTASSIUM 3.8 MMOL/L (3.6-5.0); SODIUM 140 MMOL/L (135-145); TOTAL PROTEIN 7.5 GM/DL (6.4-8.2)
[2019-04-27] MEDS ORDERED: CYCL10TA9 PO (01:27)
[2019-04-27] MEDS ORDERED: RX-CYCLOBENZAPRINE 10 MG (FLEXERIL) TAB PPK#3 PO STA (01:27)
[2019-04-27] MEDS ORDERED: RX-NAPROXEN (NAPROSYN) 250 MG TAB PPK#4 PO STA (01:27)
[2019-04-27] MEDS ORDERED: SULF1TAB35 PO (01:27)
[2019-04-27] MEDS ORDERED: NAPR-915 PO (01:27)
[2019-04-27 01:42] VITALS: BP 145/97
--- NOTE | 2019-04-27 07:07 | Diagnostic Imaging Report ---
PROCEDURE: CT urinary tract, rule out kidney stone. TECHNIQUE: Multiple contiguous axial images were obtained through the abdomen and pelvis without the use of intravenous contrast. Auto Exposure Controls were utilized during the CT exam to meet ALARA standards for radiation dose reduction. INDICATION: Abdominal pain, back pain. Study compared 05/02/2016. FINDINGS: There are intrarenal calculi within upper and lower pole calyces of the right kidney, the largest stone measuring 3 mm. There are, however no radiodense ureteral stones and there is no hydroureteronephrosis. No perinephric or periureteric edema is demonstrated. The liver, spleen, adrenals, pancreas and gallbladder appear normal. The aorta nonaneurysmal. The appendix surgically absent, there is no diverticulitis. The uterus, adnexa and urinary bladder unremarkable. No ascites, abscess, hematoma or other fluid collection. No pneumatosis or free air. The osseous structures and the lung bases appear nonacute. IMPRESSION: Right-sided nonobstructing intrarenal stones, otherwise negative. Dictated by: Dictated on workstation # [id number]
== END 2019-04-27 01:44 | disposition home or self-care (01) ==
LOC: EDUNIT# 22:19 → ER 22:20
DX: N39.0 Urinary tract infection, site not specified (principal); N20.0 Calculus of kidney; J45.909 Unspecified asthma, uncomplicated; G43.909 Migraine, unspecified, not intractable, without status migrainosus; F41.9 Anxiety disorder, unspecified; F32.9 Major depressive disorder, single episode, unspecified; Z88.5 Allergy status to narcotic agent; Z88.8 Allergy status to other drugs, medicaments and biological substances; Z79.52 Long term (current) use of systemic steroids; Z90.89 Acquired absence of other organs; Z90.49 Acquired absence of other specified parts of digestive tract; Z82.49 Family history of ischemic heart disease and other diseases of the circulatory system
CPT/HCPCS: 36415; 74176; 80053; 81000; 82150; 83690; 84703; 85025; 87088

== ENCOUNTER 2020-02-14 12:02 | Emergency (ER) | payer OTHER ==
[~2020-02-14] VITALS: Ht 170 cm; Wt 108.8 kg
[~2020-02-14 12:02] MED LIST changes: +NAPR-915 PO
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
[2020-02-14] MEDS ORDERED: KETOROLAC 60 MG/2 ML VIAL IM ONE (12:15)
[2020-02-14] MEDS ORDERED: ORPHENADRINE 60 MG/2 ML (NORFLEX) AMP (ED ONLY) IM ONE (12:15)
[2020-02-14] MEDS ORDERED: METH-313 PO (12:16)
[2020-02-14] MEDS ORDERED: NAPR-1071 PO (12:16)
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
[2020-02-14 12:46] VITALS: BP 154/103
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
== END 2020-02-14 12:46 | disposition home or self-care (01) ==
LOC: EDUNIT# 12:02 → ER 12:05
DX: S80.01XA Contusion of right knee, initial encounter (principal); J45.909 Unspecified asthma, uncomplicated; Z80.9 Family history of malignant neoplasm, unspecified; Z82.49 Family history of ischemic heart disease and other diseases of the circulatory system; Z88.5 Allergy status to narcotic agent; Z88.8 Allergy status to other drugs, medicaments and biological substances; Z79.52 Long term (current) use of systemic steroids; V89.2XXA Person injured in unspecified motor-vehicle accident, traffic, initial encounter
CPT/HCPCS: 84703

== ENCOUNTER 2020-06-18 13:00 | Outpatient (RCR) | payer OTHER ==
[~2020-06-18 13:00] MED LIST changes: +METH-313 PO
== END 2020-06-22 | disposition home or self-care (01) ==
PROVIDERS: ATTEND Nurse Practitioner
DX: S70.01XA Contusion of right hip, initial encounter (principal); T14.8XXA Other injury of unspecified body region, initial encounter; X58.XXXA Exposure to other specified factors, initial encounter

== ENCOUNTER 2020-08-21 13:02 | Outpatient (RCR) | payer OTHER | END 2020-09-11 09:12 | disposition home or self-care (01) | PROVIDERS: ATTEND Nurse Practitioner | DX: S70.01XA Contusion of right hip, initial encounter (principal); T14.8XXA Other injury of unspecified body region, initial encounter; X58.XXXA Exposure to other specified factors, initial encounter ==

== ENCOUNTER 2020-11-10 17:35 | Inpatient (IN) | payer OTHER ==
[~2020-11-10] VITALS: Ht 170.2 cm; Wt 113.6 kg
[2020-11-10] VITALS (12 sets, daily range): BP systolic 129–170; BP diastolic 61–86
[~2020-11-10 17:35] MED LIST changes: +SULF1TAB38 PO
[2020-11-10] MEDS ORDERED: NS IV 1000 ML 1,000 ML IV SCH (18:15)
[2020-11-10] MEDS ORDERED: fentaNYL INJ 100 MCG/2 ML AMP IVP ONE ×3 (18:15→20:00)
[2020-11-10] MEDS ORDERED: ONDANSETRON 4 MG/2 ML (SDV) Z0FRAN IVP ONE (18:15)
--- NOTE | 2020-11-10 18:19 | ED Abdominal Pain ---
General Chief Complaint: Abdominal/GI Problems Stated Complaint: ABDOMINAL PAIN, POST OP X3 WEEKS, CONSTIPATION Nursing Triage Note: Pt to ED in wheelchair. Pt reports not being able to have a bowel movement for three weeks after having a knee surgery. Pt denies any pain medications after surgery. Pt reports trying miralax and stool softeners. Pt reports nausea, vomiting and flatulence. Pt uncooperative while taking vitals and starting IV. Pt reports symptoms worsened last night and today. Source of Information: Patient Exam Limitations: No Limitations History of Present Illness Date Seen by Provider: Nov 10, 2020 Time Seen by Provider: 18:05 Initial Comments Patient is a 30-year-old female who presents to the emergency room with a chief complaint of lower abdominal pain, nausea, vomiting. Patient tells me she has a history of PCOS and started her period today. She describes significant suprapubic discomfort that comes in waves. She endorses dysuria. She states she has been constipated for about the last 3 weeks. She recently had a knee scope by Dr. ESTES. She denies taking hydrocodone or any other narcotic pain medications. She states she has passed just little bits of stool over the last 3 weeks and thinks that this might be contributing to her pain. She has had previous appendectomy and ovarian surgery for her ovarian cyst. No abnormal vaginal discharge. Does not believe she could be . States she took a negative test 3 weeks ago prior to her knee surgery. She denies fevers or chills. She states she has had significant pain that is worsened over the course of the last 24 hours. All other review of systems reviewed and negative except as stated. Timing/Duration: 24 Hours Severity/Quality: Severe, Sharp, Stabbing Location: Suprapubic Radiation: Back Activities at Onset: None Associated Symptoms: Back Pain, Diaphoresis, Nausea/Vomiting Allergies and Home Medications Allergies Coded Allergies: diphenhydramine (Verified Allergy, Mild, 05/02/16) morphine (Verified Allergy, Unknown, 03/10/15) Patient Home Medication List Home Medication List Reviewed: Yes Review of Systems Review of Systems Constitutional: see HPI EENTM: No Symptoms Reported Respiratory: No Symptoms Reported Cardiovascular: No Symptoms Reported Gastrointestinal: Abdominal Pain, Constipated, Nausea, Vomiting Genitourinary: Burning Musculoskeletal: no symptoms reported Skin: no symptoms reported Psychiatric/Neurological: No Symptoms Reported All Other Systems Reviewed Negative Unless Noted: Yes Past [id number] Hx Patient Social History Tobacco Use?: No Substance use?: No Alcohol Use?: Yes Alcohol Frequency: Rarely Pt feels they are or have been: No Immunizations Up To Date Tetanus Booster (TDap): Unknown Seasonal Allergies Seasonal Allergies: No Past Medical History Surgeries: Yes (BILAT TRIGGER THUMB;R foot trauma surg x 2; R OVARIAN CYSTECTOMY) Adenoidectomy, Appendectomy, Orthopedic, Tonsillectomy Respiratory: Yes Asthma Currently Using CPAP: Yes Currently Using BIPAP: No Cardiac: No Neurological: Yes Headaches /Migraines Reproductive Disorders: Yes Female Reproductive Disorders: Ovarian Cyst, Polycystic Ovarian Dis Sexually Transmitted Disease: No Genitourinary: No Gastrointestinal: No Musculoskeletal: No Endocrine: No HEENT: No Cancer: No Psychosocial: Yes Anxiety, Depression Integumentary: No Blood Disorders: No Family Medical History Cancer, Hypertension Physical Exam Vital Signs Vital Signs - First Documented 11/10/20 17:39 Temp 36.5 Pulse 86 Resp 28 B/P (MAP) 149/91 (110) Pulse Ox 98 O2 Delivery Room Air Capillary Refill : Less Than 3 Seconds Height/Weight/BMI Height: 5'6.00" Weight: 190lbs. oz. 86.785453an; 40.00 BMI Method:Stated General Appearance: WD/WN, severe distress HEENT: PERRL/EOMI Respiratory: lungs clear, normal breath sounds, no respiratory distress, no accessory muscle use Cardiovascular: regular rate, rhythm, no edema Gastrointestinal: soft, other (mild suprapubic tenderness - patient would not let me examine her laying down as she stated that made her pain worse) Extremities: normal range of motion, normal inspection Back: normal inspection Neurologic/Psychiatric: alert, normal mood/affect, oriented x 3, other (anxious) Skin: normal color, diaphoresis Progress/Results/Core Measures Results/Orders Lab Results Laboratory Tests Test 11/10/20 17:47 11/10/20 19:10 Range/Units White Blood Count 16.9 H 4.3-11.0 10^3/uL Red Blood Count 4.17 3.80-5.11 10^6/uL Hemoglobin 12.3 11.5-16.0 g/dL Hematocrit 38 35-52 % Mean Corpuscular Volume 91 80-99 fL Mean Corpuscular Hemoglobin 30 25-34 pg Mean Corpuscular Hemoglobin Concent 33 32-36 g/dL Red Cell Distribution Width 14.0 10.0-14.5 % Platelet Count 210 130-400 10^3/uL Mean Platelet Volume 13.2 H 9.0-12.2 fL Immature Granulocyte % (Auto) 1 % Neutrophils (%) (Auto) 83 H 42-75 % Lymphocytes (%) (Auto) 11 L 12-44 % Monocytes (%) (Auto) 4 0-12 % Eosinophils (%) (Auto) 0 0-10 % Basophils (%) (Auto) 0 0-10 % Neutrophils # (Auto) 14.1 H 1.8-7.8 10^3/uL Lymphocytes # (Auto) 1.9 1.0-4.0 10^3/uL Monocytes # (Auto) 0.7 0.0-1.0 10^3/uL Eosinophils # (Auto) 0.0 0.0-0.3 10^3/uL Basophils # (Auto) 0.0 0.0-0.1 10^3/uL Immature Granulocyte # (Auto) 0.1 0.0-0.1 10^3/uL Neutrophils % (Manual) 81 % Lymphocytes % (Manual) 12 % Monocytes % (Manual) 7 % Percent Immature Platelet Fraction 12.3 H 0.0-7.6 % Blood Morphology Comment NORMAL Sodium Level 138 135-145 MMOL/L Potassium Level 4.0 3.6-5.0 MMOL/L Chloride Level 109 H 98-107 MMOL/L Carbon Dioxide Level 16 L 21-32 MMOL/L Anion Gap 13 5-14 MMOL/L Blood Urea Nitrogen 5 L 7-18 MG/DL Creatinine 0.70 0.60-1.30 MG/DL Estimat Glomerular Filtration Rate 99 BUN/Creatinine Ratio 7 Glucose Level 97 70-105 MG/DL Calcium Level 9.2 8.5-10.1 MG/DL Corrected Calcium 9.4 8.5-10.1 MG/DL Total Bilirubin 0.4 0.1-1.0 MG/DL Aspartate Amino Transf (AST/SGOT) 12 5-34 U/L Alanine Aminotransferase (ALT/SGPT) 10 0-55 U/L Alkaline Phosphatase 187 H 40-136 U/L Total Protein 7.2 6.4-8.2 GM/DL Albumin 3.7 3.2-4.5 GM/DL Urine Color YELLOW Urine Clarity CLOUDY Urine pH 7.5 5-9 Urine Specific [place] 1.020 1.016-1.022 Urine Protein 2+ H NEGATIVE Urine Glucose (UA) NEGATIVE NEGATIVE Urine Ketones NEGATIVE NEGATIVE Urine Nitrite NEGATIVE NEGATIVE Urine Bilirubin NEGATIVE NEGATIVE Urine Urobilinogen 0.2 < = 1.0 MG/DL Urine Leukocyte Esterase NEGATIVE NEGATIVE Urine RBC (Auto) 3+ H NEGATIVE Urine RBC >100 H /HPF Urine WBC 2-5 /HPF Urine Squamous Epithelial Cells >50 H /HPF Urine Crystals PRESENT H /LPF Urine Amorphous Sediment LARGE CHI PHOSPHATE H /LPF Urine Bacteria TRACE /HPF Urine Casts NONE /LPF Urine Mucus NEGATIVE /LPF Urine Culture Indicated NO My Orders Orders - NASRIN PACK MD Ed Iv/Invasive Line Start (11/10/20 18:15) Cbc With Automated Diff (11/10/20 18:15) Comprehensive Metabolic Panel (11/10/20 18:15) Ua Culture If Indicated (11/10/20 18:15) Fentanyl Inj (Sublimaze Injection) (11/10/20 18:15) Ondansetron Injection (Zofran Injectio (11/10/20 18:15) Ns Iv 1000 Ml (Sodium Chloride 0.9%) (11/10/20 18:15) Urine Bedside (11/10/20 18:48) Manual Differential (11/10/20 17:47) Ct Abdomen/Pelvis Wo (11/10/20 19:16) Fentanyl Inj (Sublimaze Injection) (11/10/20 19:30) Fentanyl Inj (Sublimaze Injection) (11/10/20 19:54) Fentanyl Inj (Sublimaze Injection) (11/10/20 20:00) Oxytocin Pre-Mix Drip (Pitocin Pre-Mix) (11/10/20 20:08) D5 Lr Iv Solution (Dextrose 5%/Lactated (11/10/20 20:08) Medications Given in ED Current Medications Medications Dose Ordered Sig/Gabriela Route Start Time Stop Time Status Last Admin Dose Admin Fentanyl Citrate 50 mcg ONCE ONCE IVP 11/10/20 18:15 11/10/20 18:16 DC 11/10/20 18:40 50 MCG Fentanyl Citrate 50 mcg ONCE ONCE IVP 11/10/20 19:30 11/10/20 19:31 DC 11/10/20 19:33 50 MCG Fentanyl Citrate 50 mcg ONCE ONCE IVP 11/10/20 20:00 11/10/20 20:01 DC 11/10/20 19:58 50 MCG Ondansetron HCl 4 mg ONCE ONCE IVP 11/10/20 18:15 11/10/20 18:16 DC 11/10/20 18:38 4 MG Vital Signs/I&O 11/10/20 11/10/20 17:39 20:00 Temp 36.5 Pulse 86 78 Resp 28 22 B/P (MAP) 149/91 (110) 04/03 Pulse Ox 98 99 O2 Delivery Room Air Room Air Blood Pressure Mean: 110 Progress Progress Note : Time: 20:12 Progress Note Notified by [employer] at approximately 1940 that the patient was . She was immediately brought back to the room from the CAT scanner and a pelvic exam was performed by me. Patient was . Patient was reassured and instructed on breathing, gentle perineal massage was performed. Approximately 10 minutes later baby delivered occiput anterior strong vigorous cry. Pediatrics was in the room as well as nursery to receive the baby. Umbilical cord was clamped and cut. Baby was dried off, noted some meconium staining. Another liter of fluids was started on mom. She was given 50 mcg of fentanyl. It was double and triple checked that her urine test was indeed negative down here in the emergency department. Mom was quite anxious and upset but vital signs remained stable. No significant bleeding per vagina was noted after delivery. I discussed the case with Dr. Cormier who is on her way to the hospital. Advised her of the history, physical exam, pertinent findings. Patient was taken to labor and delivery. Departure Communication (Admissions) Time/Spoke to Admitting Phy: 20:[address] Cormier Impression Primary Impression: Abdominal pain Additional Impression: Normal vaginal delivery Disposition: ADMITTED INPATIENT Condition: Stable Admissions Decision to Admit Reason: Admit from ER (General) Decision to Admit/Date: Nov 10, 2020 Time/Decision to Admit Time: 20:15 Departure-Patient Inst. Referrals: AVE BROCK MD (PCP) Primary Care Physician NASRIN PACK MD Nov 10, 2020 18:19
[2020-11-10 19:02] LABS: BASOPHILS % (AUTO) 0 % (0-10); EOSINOPHILS % (AUTO) 0 % (0-10)
[2020-11-10 19:03] LABS: HEMATOCRIT 38 % (35-52); HEMOGLOBIN 12.3 g/dL (11.5-16.0); LYMPHOCYTES # (AUTO) 1.9 10^3/uL (1.0-4.0); LYMPHOCYTES % (AUTO) 11 % (12-44); MEAN CORPUSCULAR HEMOGLOBIN 30 pg (25-34); MEAN CORPUSCULAR HGB CONC 33 g/dL (32-36); MEAN CORPUSCULAR VOLUME 91 fL (80-99); MEAN PLATELET VOLUME 13.2 fL (9.0-12.2); MONOCYTES # (AUTO) 0.7 10^3/uL (0.0-1.0); MONOCYTES % (AUTO) 4 % (0-12); NEUTROPHILS # (AUTO) 14.1 10^3/uL (1.8-7.8); NEUTROPHILS % (AUTO) 83 % (42-75); PLATELET COUNT 210 10^3/uL (130-400); WHITE BLOOD COUNT 16.9 10^3/uL (4.3-11.0)
[2020-11-10 19:06] LABS: ALBUMIN 3.7 GM/DL (3.2-4.5)
[2020-11-10 19:08] LABS: CALCIUM 9.2 MG/DL (8.5-10.1)
[2020-11-10 19:09] LABS: TOTAL PROTEIN 7.2 GM/DL (6.4-8.2)
[2020-11-10 19:11] LABS: BILIRUBIN,TOTAL 0.4 MG/DL (0.1-1.0)
[2020-11-10 19:13] LABS: CREATININE SERUM 0.7 MG/DL (0.60-1.30)
[2020-11-10 19:20] LABS: BILIRUBIN,URINE NEGATIVE (NEGATIVE); CLARITY,URINE CLOUDY; COLOR,URINE YELLOW; GLUCOSE, URINE (UA) NEGATIVE (NEGATIVE); KETONES,URINE NEGATIVE (NEGATIVE); LEUKOCYTE ESTERASE ,URINE NEGATIVE (NEGATIVE); NITRITE,URINE NEGATIVE (NEGATIVE); PH,URINE 7.5 (5-9); PROTEIN,URINE 2+ (NEGATIVE)
[2020-11-10 19:30] LABS: RBC,URINE >100 /HPF
[2020-11-10 19:31] LABS: AMORPHOUS SEDIMENT,UR LARGE AMOR PHOSPHATE /LPF; BACTERIA,URINE TRACE /HPF
[2020-11-10 19:32] LABS: SQUAMOUS EPITHELIAL CELL,UR >50 /HPF
[2020-11-10 19:46] LABS: LYMPHOCYTES % (MANUAL) 12 %; MONOCYTES % (MANUAL) 7 %; NEUTROPHILS % (MANUAL) 81 %; RBC MORPH NORMAL
[2020-11-10] MEDS ORDERED: fentaNYL INJ 100 MCG/2 ML AMP ONE (19:54)
[2020-11-10] MEDS ORDERED: OXYTOCIN PRE-MIX DRIP 500 ML IV ONE (20:08)
[2020-11-10] MEDS ORDERED: D5 LR IV SOLUTION 1,000 ML IV ONE (20:08)
--- NOTE | 2020-11-10 20:13 | Diagnostic Imaging Report ---
INDICATION: Severe abdominal pain and dysuria. TECHNIQUE: Multiple contiguous axial images were obtained through the abdomen and pelvis without the use of intravenous contrast. Auto Exposure Controls were utilized during the CT exam to meet ALARA standards for radiation dose reduction. COMPARISON made to 04/27/2019 The visualized portions of the lung bases are clear. There were no pleural fluid collections. There is no free intraperitoneal air. The liver, spleen, adrenals and pancreas are normal. The kidneys show tiny intrarenal calculi on both sides without hydronephrosis. There is no ureteral stone. Despite the patient's reported negative test, the patient does have an intrauterine gestation. There is no pelvic mass. Visualized bowel loops are unremarkable. IMPRESSION: An intrauterine gestation is present in cephalic presentation. Recommend OB sonography for exact dates. There are tiny intrarenal calculi in both kidneys but no ureteral stone or hydronephrosis. There were no other abnormal findings. Dictated by: Dictated on workstation # [id number]
[2020-11-10] MEDS ORDERED: BENZOCAINE/MENTHOL (DERMOPLAST) 56 ML CAN TP ONE (23:26)
[2020-11-11 00:30] VITALS: BP 128/72
[2020-11-11 04:30] VITALS: BP 123/82
[2020-11-11 06:40] LABS: BASOPHILS % (AUTO) 0 % (0-10); EOSINOPHILS % (AUTO) 0 % (0-10); HEMATOCRIT 30 % (35-52); HEMOGLOBIN 9.9 g/dL (11.5-16.0); LYMPHOCYTES # (AUTO) 2.5 10^3/uL (1.0-4.0); LYMPHOCYTES % (AUTO) 16 % (12-44); MEAN CORPUSCULAR HEMOGLOBIN 30 pg (25-34); MEAN CORPUSCULAR HGB CONC 33 g/dL (32-36); MEAN CORPUSCULAR VOLUME 90 fL (80-99); MONOCYTES # (AUTO) 1.3 10^3/uL (0.0-1.0); MONOCYTES % (AUTO) 8 % (0-12); NEUTROPHILS % (AUTO) 75 % (42-75); PLATELET COUNT 171 10^3/uL (130-400)
[2020-11-11] MEDS ORDERED: IBUP-844 PO (08:53)
[2020-11-11] MEDS ORDERED: ACET-93 PO (08:53)
[2020-11-11 09:00] VITALS: BP 149/69
[2020-11-11 13:00] VITALS: BP 138/75
[2020-11-11 17:56] VITALS: BP 140/88
[2020-11-11 20:30] VITALS: BP 143/88
[2020-11-12] VITALS: BP 108/65
[2020-11-12] MEDS ORDERED: WITCH HAZEL(TUCKS) 40 EA JAR TOP ONE (00:05)
[2020-11-12] MEDS ORDERED: DOCUSATE SODIUM 100 MG (COLACE) CAP PO SCH (09:00)
[2020-11-12 09:05] VITALS: BP 141/74
[2020-11-12] MEDS ORDERED: TETANUS,DIPTH,PERTUSS P/F (BOOSTRIX) 0.5 ML VIAL IM ONE (10:45)
[2020-11-12] MEDS ORDERED: BENZOCAINE/MENTHOL (DERMOPLAST) 56 ML CAN TP PRN (10:45)
[2020-11-12] MEDS ORDERED: WITCH HAZEL(TUCKS) 40 EA JAR TOP PRN (10:45)
[2020-11-12] MEDS ORDERED: NALOXONE 0.4 MG/ML 1 ML (NARCAN) VIAL IV PRN (10:45)
[2020-11-12] MEDS ORDERED: MEASLES,MUMPS,RUBELLA 1 EA INJ SQ ONE (10:45)
[2020-11-12] MEDS ORDERED: IBUPROFEN 600 MG (MOTRIN) TAB PO SCH (12:00)
--- NOTE | 2020-11-12 13:24 | Discharge Inst-Women's Service ---
Discharge Inst-Women's Serv Depart Medication/Instructions New, Converted or Re-Newed RX: Call to Patients Pharmacy Consults/Follow Up Additional Follow Up: Yes Orders/Referrals 6wk PP appt w/Dr. Cormier Activity Activity: Activity as Tolerated Driving Instructions: No Driving for 1 Week NO SMOKING: NO SMOKING Nothing Inside Vagina: No Douching, No [place], No Tampons Diet Discharge Diet: No Restrictions Symptoms to Report to : Pain Increased, Fever Over 101 Degrees F, Vaginal Bleeding Increase For Any Problems or Questions: Contact Your Physician TONYA SABILLON APRN Nov 12, 2020 13:24
[2020-11-12] MEDS ORDERED: ACETAMINOPHEN 500 MG TAB (TYLENOL) PO SCH (14:00)
[2020-11-12] MEDS ORDERED: CATHETER FLUSH 10 ML SYR IV SCH (14:00)
[2020-11-12 15:15] VITALS: BP 141/74
== END 2020-11-12 15:15 | disposition home or self-care (01) | DRG 807 ==
LOC: EDUNIT# 17:35 → ER 17:37 → LDRP 20:05
PROVIDERS: ADMIT Obstetrics & Gynecology; ATTEND Obstetrics & Gynecology
PROC: 10E0XZZ Delivery of Products of Conception, External Approach (ICD-10-PCS; principal; 2020-11-10)
PROC: 0UJHXZZ Inspection of Vagina and Cul-de-sac, External Approach (ICD-10-PCS; 2020-11-10)
DX: O62.3 Precipitate labor (principal); Z37.0 Single live birth; O77.0 Labor and delivery complicated by meconium in amniotic fluid; O99.340 Other mental disorders complicating pregnancy, unspecified trimester; F41.9 Anxiety disorder, unspecified; F32.9 Major depressive disorder, single episode, unspecified; O99.284 Endocrine, nutritional and metabolic diseases complicating childbirth; E28.2 Polycystic ovarian syndrome; Z3A.00 Weeks of gestation of pregnancy not specified; Z88.6 Allergy status to analgesic agent; Z88.8 Allergy status to other drugs, medicaments and biological substances; Z23 Encounter for immunization
CPT/HCPCS: 36415; 59409; 74176; 80053; 81000; 84703; 85007; 85025; 85027; 86703; 86762; 86780; 86850; 86900; 86901; 87340; 88307; 90715; 96361; 96374; 96375; 96376

== ENCOUNTER 2020-12-30 11:13 | Outpatient (RCR) | payer OTHER ==
[~2020-12-30 11:13] MED LIST changes: +ACET-93 PO; +IBUP-844 PO
== END 2021-01-05 | disposition home or self-care (01) ==
PROVIDERS: ATTEND Anesthesiology Pain Medicine
DX: M79.18 Myalgia, other site (principal); M46.1 Sacroiliitis, not elsewhere classified

== ENCOUNTER 2021-04-01 15:56 | Outpatient (RCR) | payer OTHER ==
[~2021-04-01 15:56] MED LIST changes: +CYCL10TA25 PO; -CYCL10TA9 PO
== END 2021-04-02 | disposition home or self-care (01) ==
PROVIDERS: ATTEND Anesthesiology Pain Medicine
DX: M54.16 Radiculopathy, lumbar region (principal); M25.561 Pain in right knee; M79.18 Myalgia, other site; M46.1 Sacroiliitis, not elsewhere classified